=== PATIENT | female | born 1995 | race Caucasian/White ===

== ENCOUNTER 2017-11-24 12:06 | Emergency (ER) | payer MEDICAID ==
[~2017-11-24] VITALS: Ht 154.9 cm; Wt 68.9 kg
[2017-11-24 12:20] VITALS: BP 130/70
--- NOTE | 2017-11-24 12:36 | RAD ---
Exam: Right hand radiograph 11/24/2017 Indication: Fourth and fifth digit pain after being caught in a dog cage. Comparison: None available Technique: 3 views of the right hand are provided. Findings: There is no acute fracture or dislocation. No joint space narrowing. No soft tissue swelling. No osseous erosion or soft tissue gas. Bone mineralization is within normal limits. Impression: No acute fracture or dislocation.
--- NOTE | 2017-11-24 12:53 | PHYS DOC ---
Adult General Chief Complaint Chief Complaint: HAND PROBLEM HPI HPI Patient is a 22-year-old right-handed female who presents ambulatory with a complaint of right hand pain. She was trying to close her dog kennel when her hand got jammed into the wires of the dog kennel when the door was not working. She is complaining of pain, swelling, bruising, and numbness of the right hand. She states she has a previous right hand injury and had surgery and "reconstruction of all of her knuckles". Patient denies other injury. Review of Systems Review of Systems Musculoskeletal: Denies injury other than as in history of present illness Physical Exam Physical Exam Constitutional: Well developed, well nourished, no acute distress, non-toxic appearance. Alert, mentating normally, ambulatory, no acute distress. HENT: Normocephalic, atraumatic, bilateral external ears normal, nose normal. [ ] Eyes: conjunctiva normal, no discharge. [] Neck: Normal range of motion, no stridor. [] Skin: Warm, dry, no erythema, no rash. [] Extremities: Right hand: There is minimal swelling over the dorsal aspect of the third through fifth fingers. There is tenderness to palpation generalized, mostly on the dorsal aspect, no point tenderness, no deformity, no crepitance. The patient is able to actively extend all 5 digits against resistance although it is painful. No skin abnormalities or lesions. Although the patient is very protective of her right hand and barely allows sufficient exam of the hand, later while the patient is talking, she is noted to be gesturing and using the hand without difficulty. Neurologic: Alert and oriented X 3, normal motor function, no focal deficits noted. [] EKG EKG [] Radiology/Procedures Radiology/Procedures Three-view x-ray of the right hand read by the radiologist. No acute findings. Reviewed by me. No evidence of prior "reconstructive surgery" seen by me.[] Course & Med Decision Making Course & Med Decision Making Pertinent Labs and Imaging studies reviewed. (See chart for details) 22-year-old female presents with contusion to the right hand. X-rays are negative for fracture. There is no evidence on exam of any tendon or other injury or deformity other than contusion and mild swelling. Symptomatic treatment, see instructions for plan. Patient advised me that ibuprofen "causes severe vomiting" for her, although it is not an allergy, advised Tylenol. [] Dragon Disclaimer Dragon Disclaimer This electronic medical record was generated, in whole or in part, using a voice recognition dictation system. Departure Departure: Impression: Primary Impression: Contusion of right hand Disposition: HOME, SELF-CARE Condition: STABLE Patient Instructions: Contusion, [id number] Additional Instructions: Elevate and ice for swelling, as discussed. If not improving or back to normal in 3-5 days, see a hand specialist for recheck. MENDEL DURAND MD Nov 24, 2017 12:53
== END 2017-11-24 13:16 | disposition home or self-care (01) ==
LOC: ER 12:06
DX: S60.221A Contusion of right hand, initial encounter (principal); W23.0XXA Caught, crushed, jammed, or pinched between moving objects, initial encounter; Y93.89 Activity, other specified; Y99.8 Other external cause status; Y92.89 Other specified places as the place of occurrence of the external cause
CPT/HCPCS: 73130; 99284

== ENCOUNTER 2017-12-17 19:12 | Emergency (ER) | payer MEDICAID, OTHER ==
[~2017-12-17] VITALS: Ht 154.9 cm; Wt 63.5 kg
[2017-12-17 19:20] VITALS: BP 130/70
[2017-12-17] MEDS ORDERED: POLY10DR EACHEYE (20:47)
--- NOTE | 2017-12-17 20:51 | PHYS DOC ---
General Chief Complaint: EYE PROBLEMS Stated Complaint: EYE ISSUE Time Seen by MD: 20:14 Source: patient Exam Limitations: no limitations Problems: History of Present Illness Initial Comments Patient is a 22-year-old female who comes in the ED complaining of right eye redness and discharge. Patient states that last night her right eye began to feel irritated itching and burning. She awoke this morning with it matted shut with greenish yellow discharge. She's had some clear nasal discharge for the past few days and a scratchy throat but no difficulty with swallowing and she's been eating and drinking well. No fever chills sweats or body aches no foreign body sensation or actual eye pain she does not wear contact lenses. She has brought her son and with similar symptoms he is diagnosed with pinkeye as well. Patient's heart rate is 107 bpm on arrival, she states that she smokes cigarettes immediately prior to walking in. Timing/Duration: yesterday Severity: mild Location: eye (R) Prearrival Treatment: over the counter meds Associated Symptoms: other Past Medical History Medical History: no pertinent history Surgical History: noncontributory Social History Smoker: secondhand Alcohol: none Drugs: none Constitutional: denies chills, denies diaphoresis, denies fever, denies malaise Eyes: see HPI Ears: denies dizziness, denies pain, denies tinnitus Nose: denies clots, congestion Throat: see HPI, denies neck stiffness, denies painful swallowing, denies difficulty with fluids Respiratory: denies shortness of breath, denies wheezing Cardiovascular: denies palpitations, denies syncope Gastrointestinal: denies nausea, denies vomiting Physical Exam General Appearance: WD/WN, no apparent distress Eyes: right eye other (right conjunctivae injected with yellow discharge, the periorbital skin tissues are irritated as if she's been rubbing at her eye no actual periorbital swelling or difficulty with extraocular motion), bilateral eye normal inspection, bilateral eye PERRL, bilateral eye EOMI Nose: normal inspection Mouth/Throat: normal mouth inspection, pharynx normal Neck: non-tender, supple Cardiovascular/Respiratory: normal peripheral pulses, no respiratory distress Neurologic/Psychiatric: 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 Stop smoking seek medical assistance if necessary. Daily linen changes. Aggressive handwashing. Off work through December 19. Prescription: Polytrim Follow-up with your doctor in 10 days for recheck. Return to ED with new or changing symptoms. DOMENICA YOUNG DO Dec 17, 2017 20:51
== END 2017-12-17 21:08 | disposition home or self-care (01) ==
LOC: ER 19:12
DX: H10.9 Unspecified conjunctivitis (principal); R09.89 Other specified symptoms and signs involving the circulatory and respiratory systems; Z77.22 Contact with and (suspected) exposure to environmental tobacco smoke (acute) (chronic)
CPT/HCPCS: 87070; 87880; 99283

== ENCOUNTER 2018-03-23 18:53 | Emergency (ER) | payer OTHER ==
[~2018-03-23 18:53] MED LIST: POLY10DR EACHEYE
--- NOTE | 2018-03-23 19:23 | ED.ADGEN ---
Past History Past Medical History: No Pertinent History Past Surgical History: No Surgical History Alcohol Use: None Drug Use: Marijuana Adult General Chief Complaint Chief Complaint "... I been coughing a lot... Now it hurts to take the coughs." HPI HPI Patient is a 23 year old female who presents with above hx and cough'. Note Pt. left before placement in ED room for eval. Pt. left approximately 30 min . 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 Pt. did not inform staff before leaving. Review of Systems Review of Systems Respiratory: Hx. cough Physical Exam Physical Exam No exam left before room placement- no exam EKG EKG [] Radiology/Procedures Radiology/Procedures [] Course & Med Decision Making Course & Med Decision Making Pertinent Labs and Imaging studies reviewed. (See chart for details) [] Final Impression Final Impression 1. History of cough[] Problems: Dragon Disclaimer Dragon Disclaimer This electronic medical record was generated, in whole or in part, using a voice recognition dictation system. ROSALINA HERNANDEZ MD Mar 23, 2018 19:23
== END 2018-03-23 19:40 | disposition left against medical advice (07) ==
LOC: ER 18:53
DX: R05 Cough (principal); Z53.21 Procedure and treatment not carried out due to patient leaving prior to being seen by health care provider

== ENCOUNTER 2018-05-28 16:01 | Emergency (ER) | payer OTHER ==
[~2018-05-28] VITALS: Ht 160 cm; Wt 61.2 kg
--- NOTE | 2018-05-28 17:00 | PHYS DOC ---
Past History Past Medical History: No Pertinent History Past Surgical History: No Surgical History Alcohol Use: None Drug Use: Marijuana Adult General Chief Complaint Chief Complaint: LACERATION/AVULSION HPI HPI 23-year-old female presents with laceration of the right wrist. The patient started to trip and fell against a mirror the mirror broke and lacerated her wrist. Us was accidental. She denies any other injuries. She was able to get the bleeding to stop. She was concerned that it might need stitches so she came to the ED. She denies fever or chills. Last tetanus shot was one year ago when she was . Review of Systems Review of Systems Constitutional: Denies fever or chills [] Eyes: Denies change in visual acuity, redness, or eye pain [] HENT: Denies nasal congestion or sore throat [] Respiratory: Denies cough or shortness of breath [] Cardiovascular: No additional information not addressed in HPI [] GI: Denies abdominal pain, nausea, vomiting, bloody stools or diarrhea [] : Denies dysuria or hematuria [] Musculoskeletal: Denies back pain or joint pain [] Integument: 1 cm laceration of the right wrist, a second half centimeter laceration.[] Neurologic: Denies headache, focal weakness or sensory changes [] Endocrine: Denies polyuria or polydipsia [] All other systems were reviewed and found to be within normal limits, except as documented in this note. Physical Exam Physical Exam Constitutional: Well developed, well nourished, no acute distress, non-toxic appearance. [] HENT: Normocephalic, atraumatic, bilateral external ears normal, oropharynx moist, no oral exudates, nose normal. [] Eyes: PERRLA, EOMI, conjunctiva normal, no discharge. [] Neck: Normal range of motion, no tenderness, supple, no stridor. [] Cardiovascular:Heart rate regular rhythm, no murmur [] Lungs & Thorax: Bilateral breath sounds clear to auscultation [] Abdomen: Bowel sounds normal, soft, no tenderness, no masses, no pulsatile masses. [] Skin: One centimeter laceration of the left wrist. There is a second one half centimeter laceration in the same area. No foreign bodies visible[] Back: No tenderness, no CVA tenderness. [] Extremities: No tenderness, no cyanosis, no clubbing, ROM intact, no edema. [] Neurologic: Alert and oriented X 3, normal motor function, normal sensory function, no focal deficits noted. [] Psychologic: Affect normal, judgement normal, mood normal. [] Current Patient Data Vital Signs Vital Signs Date Time Temp Pulse Resp B/P (MAP) Pulse Ox O2 Delivery O2 Flow Rate FiO2 05/28/18 16:05 104 20 96 Room Air EKG EKG [] Radiology/Procedures Radiology/Procedures [] Course & Med Decision Making Course & Med Decision Making Pertinent Labs and Imaging studies reviewed. (See chart for details) The patient had one laceration that warranted stitches. The smaller laceration was repaired with skin glue. See laceration repair note below. There were no complications. The patient is stable for discharge. Laceration note: The area was irrigated with normal saline. The wound was anesthetized with 1% lidocaine. 1.5 mL was used. After adequate anesthesia was achieved, I placed 2 4-0 Ethilon sutures in the 1 cm laceration. For the laceration, was able to use skin glue. Bleeding was well-controlled. There were no complications. Triple antibiotic and clean dressing was applied over these wounds. [] Dragon Disclaimer Dragon Disclaimer This electronic medical record was generated, in whole or in part, using a voice recognition dictation system. Departure Departure: Referrals: PINEDA DOAN (PCP) MARK FREEMAN DO May 28, 2018 17:00
[2018-05-28 17:28] VITALS: BP 113/51
== END 2018-05-28 17:38 | disposition home or self-care (01) ==
LOC: ER 16:01
DX: S61.511A Laceration without foreign body of right wrist, initial encounter (principal); W01.110A Fall on same level from slipping, tripping and stumbling with subsequent striking against sharp glass, initial encounter; Y93.89 Activity, other specified; Y99.8 Other external cause status; Y92.89 Other specified places as the place of occurrence of the external cause
CPT/HCPCS: 12001; 99283

== ENCOUNTER 2018-06-12 20:56 | Emergency (ER) | payer OTHER ==
[~2018-06-12] VITALS: Ht 160 cm; Wt 63.4 kg
--- NOTE | 2018-06-12 21:24 | PHYS DOC ---
Past History Past Medical History: No Pertinent History Past Surgical History: No Surgical History Smoking: Cigarettes, Less than 1pk/day Alcohol Use: None Drug Use: Marijuana Adult General Chief Complaint Chief Complaint: SEXUALLY TRANSMITTED DISEASE HPI HPI 23-year-old female patient complaining of vaginal discharge for the last 4 days with marked itching genital area and concern for STD. Patient states she has history of genital herpes, trichomoniasis and chlamydia infection previously and had a new sexual partner for the last 4 months but always had protected intercourse with condom. Patient complaining of burning feeling at the end of her urination and complaining of lower abdominal discomfort feeling today. She denies nausea and vomiting, fever and chills, . Review of Systems Review of Systems Constitutional: Denies fever or chills [] Eyes: Denies change in visual acuity, redness, or eye pain [] HENT: Denies nasal congestion or sore throat [] Respiratory: Denies cough or shortness of breath [] Cardiovascular: No additional information not addressed in HPI [] GI: Reports abdominal pain, denies nausea, vomiting, bloody stools or diarrhea [ ] : Denies hematuria, reports dysuria Musculoskeletal: Denies back pain or joint pain [] Integument: Denies rash or skin lesions [] Neurologic: Denies headache, focal weakness or sensory changes [] Endocrine: Denies polyuria or polydipsia [] All other systems were reviewed and found to be within normal limits, except as documented in this note. Allergies Allergies Allergies Coded Allergies Type Severity Reaction Last Updated Verified Sulfa (Sulfonamide Antibiotics) Allergy Severe Anaphylaxis 06/12/18 Yes Physical Exam Physical Exam Constitutional: Well developed, well nourished, no acute distress, non-toxic appearance. [] HENT: Normocephalic, atraumatic Eyes: PERRLA, EOMI, conjunctiva normal, no discharge. [] Neck: Normal range of motion, no tenderness, supple, no stridor. [] Cardiovascular:Heart rate regular rhythm, no murmur [] Lungs & Thorax: Bilateral breath sounds clear to auscultation [] Abdomen: Bowel sounds normal, soft, no tenderness, no masses, no pulsatile masses. Vaginal exam in present of test pilot does show external genital lesion. Patient had mild to moderate amount of white discharge without cervical lesion or adnexal tenderness or bleeding. Skin: Warm, dry, no erythema, no rash. [] Back: No tenderness, no CVA tenderness. [] Extremities: No tenderness, no cyanosis, no clubbing, ROM intact, no edema. [] Neurologic: Alert and oriented X 3, normal motor function, normal sensory function, no focal deficits noted. [] Psychologic: Affect normal, judgement normal, mood normal. [] EKG EKG [] Radiology/Procedures Radiology/Procedures [] Course & Med Decision Making Course & Med Decision Making Pertinent Labs reviewed. (See chart for details) Dilution of patient in ER showed 23-year-old female patient with complaining of vaginal discharge and concern for STD. She hasn't had unremarkable physical exam. UA and wet prep was unremarkable. Patient treated with Rocephin and Zithromax with instruction to follow up with test results for gonorrhea/ chlamydia. She instructed to quit smoking. [] Dragon Disclaimer Dragon Disclaimer This electronic medical record was generated, in whole or in part, using a voice recognition dictation system. Departure Departure: Impression: Primary Impression: Concern about STD in female without diagnosis Additional Impressions: Tobacco abuse Tobacco abuse counseling Disposition: HOME, SELF-CARE (At 2219) Condition: STABLE Referrals: PCP,NO (PCP) Patient Instructions: Sexually Transmitted Disease Additional Instructions: Drink plenty of liquids Follow-up with your primary care physician in 3-5 days Return to ER if not getting better Scripts Naproxen (NAPROSYN) 500 Mg Tablet 1 TAB PO BID, #14 TAB Prov: ALAINA ORTEGA MD 06/12/18 Problem Qualifiers ALAINA ORTEGA MD Jun 12, 2018 21:24
[2018-06-12 21:52] LABS: BACTERIA,URINE 0 /HPF (0-FEW); BILIRUBIN,URINE NEG (NEG); CLARITY,URINE CLEAR; COLOR,URINE YELLOW; GLUCOSE,URINE NEG (NEG); NITRITE,URINE NEG (NEG); RBC,URINE OCC /HPF (0-2); SQUAMOUS EPITHELIAL CELL,UR FEW /LPF; UROBILINOGEN,URINE 0.2 mg/dL (0.2 mg/dL); WBC,URINE OCC /HPF (0-4)
[2018-06-12 21:53] LABS: U PREG PATIENT NEGATIVE (NEG)
[2018-06-12] MEDS ORDERED: cefTRIAXone IM 250 MG VIAL IM ONE (22:15)
[2018-06-12] MEDS ORDERED: AZITHROMYCIN 250 MG TABLET. PO ONE (22:15)
[2018-06-12] MEDS ORDERED: NAPR-683 PO (22:21)
[2018-06-12 22:33] VITALS: BP 113/77
[2018-06-14 16:10] LABS: CHLAMYDIA PROBE Negative (Negative)
== END 2018-06-12 22:38 | disposition home or self-care (01) ==
LOC: ER 20:56
DX: Z20.2 Contact with and (suspected) exposure to infections with a predominantly sexual mode of transmission (principal); F17.210 Nicotine dependence, cigarettes, uncomplicated; Z88.2 Allergy status to sulfonamides
CPT/HCPCS: 36415; 81001; 81025; 87491; 87591; 96372; 99284; J0456; J0696; Q0111

== ENCOUNTER 2018-06-22 13:13 | Emergency (ER) | payer OTHER ==
[~2018-06-22 13:13] MED LIST changes: +NAPR-683 PO
[2018-06-22] MEDS ORDERED: IBUPROFEN 600 MG TABLET. PO ONE (13:30)
--- NOTE | 2018-06-22 13:32 | ED.ADGEN ---
Past History Past Medical History: No Pertinent History, Other Past Surgical History: No Surgical History, Tonsillectomy, Other Smoking: Cigarettes, Less than 1pk/day Alcohol Use: Rarely Drug Use: None Adult General Chief Complaint Chief Complaint Chest pain, chest wall pain HPI HPI Patient noted onset of mild chest pain 10 days ago, no trauma. Pain has been worse with movement in her anterior chest wall. This morning her pain got worse when she was putting on a shirt. She felt a pop and the pain radiates to her right anterior chest wall and towards her neck. Pain is worse with breathing and palpation. She denies any cough or shortness of breath. She' s had no fevers or palpitations. Patient denies control use, leg swelling or recent surgeries. No prior DVT or PE. Review of Systems Review of Systems Constitutional: Denies fever or chills Eyes: Denies change in visual acuity, redness, or eye pain HENT: Denies nasal congestion or sore throat Respiratory: Denies cough or shortness of breath. With anterior chest wall tenderness Cardiovascular: with chest wall pain, no palpitations GI: Denies abdominal pain, nausea, vomiting, bloody stools or diarrhea : Denies dysuria or hematuria Musculoskeletal: Denies back pain or joint pain Integument: Denies rash or skin lesions Neurologic: Denies headache, focal weakness or sensory changes Endocrine: Denies polyuria or polydipsia All other systems were reviewed and found to be within normal limits, except as documented in this note. Current Medications Current Medications Current Medications Medications (Trade) Dose Ordered Sig/Margarita Start Time Stop Time Status Last Admin Dose Admin Ibuprofen (Motrin) 600 mg 1X ONCE 06/22/18 13:30 06/22/18 14:16 DC 06/22/18 13:39 600 MG Allergies Allergies Allergies Coded Allergies Type Severity Reaction Last Updated Verified Sulfa (Sulfonamide Antibiotics) Allergy Severe Anaphylaxis 06/12/18 Yes Physical Exam Physical Exam Constitutional: Well developed, well nourished, no acute distress, non-toxic appearance. HENT: Normocephalic, atraumatic, bilateral external ears normal, oropharynx moist, no oral exudates, nose normal. Eyes: PERRLA, EOMI, conjunctiva normal, no discharge. Neck: Normal range of motion, no tenderness, supple, no stridor. Cardiovascular:Heart rate regular rhythm, no murmur Lungs & Thorax: Bilateral breath sounds clear to auscultation. with anterior chest wall tenderness Abdomen: Bowel sounds normal, soft, no tenderness, no masses, no pulsatile masses. Skin: Warm, dry, no erythema, no rash. Back: No tenderness, no CVA tenderness. Extremities: No tenderness, no cyanosis, no clubbing, ROM intact, no edema. Neurologic: Alert and oriented X 3, normal motor function, normal sensory function, no focal deficits noted. Psychologic: Affect normal, judgement normal, mood normal. Current Patient Data Vital Signs Vital Signs Date Time Temp Pulse Resp B/P (MAP) Pulse Ox O2 Delivery O2 Flow Rate FiO2 06/22/18 15:00 78 18 118/64 (82) 97 Room Air 06/22/18 13:16 98.4 EKG EKG 13:38 ECG NSR @ 70 with no acute changes and normal morphology Radiology/Procedures Radiology/Procedures [address] [address] IMAGING REPORT Signed PATIENT: MAC BURGOS ACCOUNT: [id number] : 1995 LOCATION: ER AGE: 23 SEX: F EXAM STATUS: PRE ER ORD. PHYSICIAN: CHRISTEN POWELL MD REASON: chest pain PROCEDURE: CHEST PA & LATERAL CHEST PA LATERAL Technique: PA and lateral views of the chest were obtained. Clinical History: chest pain x 2 weeks, no known heart disease, lmp 05-29-2018, pt shielded Comparison: January 17, 2005. Findings: The heart and pulmonary vasculature appear within normal limits. The lungs are clear. The pleural margins are clear. Impression: No acute chest process is seen. Electronically signed by: Allie Gutierrez III, MD (06/22/2018 1:51 PM) [facility] DICTATED AND SIGNED BY: ALLIE GUTIERREZ III, MD DATE: 06/22/18 1905 CC: CHRISTEN POWELL MD; PCP,NO ~ Course & Med Decision Making Course & Med Decision Making Patient presents with chest wall pain DDx- chest wall pain, chest pain, fracture, pneumonia 16:00 Patient feels better with decreased chest wall pain after Motrin ECG was unremarkable without any evidence of acute injury pattern. Chest x-ray is unremarkable. Patient is PERC rule negative, doubt PE. Patient will follow-up with PCP for further evaluation. Final Impression Final Impression Clinical Impression Chest Wall Muscle Strain Acute Costochondritis Bina Disclaimer Bina Disclaimer This electronic medical record was generated, in whole or in part, using a voice recognition dictation system. Departure Departure: Impression: Primary Impression: Chest wall muscle strain Additional Impression: Costochondritis, acute Disposition: HOME, SELF-CARE Condition: STABLE Patient Instructions: Chest Wall Pain, [id number], Costochondritis, Easy-to- Read Additional Instructions: Follow-up with your primary doctor for further evaluation on Sunday. If you develop worse pain, shortness of breath, fevers, productive cough return to the emergency department Scripts Ibuprofen (IBUPROFEN) 400 Mg Tablet 1 TAB PO PRN Q6HRS, #20 TAB Prov: CHRISTEN POWELL MD 06/22/18 CHRISTEN POWELL MD Jun 22, 2018 13:32
--- NOTE | 2018-06-22 13:43 | EKG ---
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
--- NOTE | 2018-06-22 13:55 | RAD ---
CHEST PA LATERAL Technique: PA and lateral views of the chest were obtained. Clinical History: chest pain x 2 weeks, no known heart disease, lmp 05-29-2018, pt shielded Comparison: January 17, 2005. Findings: The heart and pulmonary vasculature appear within normal limits. The lungs are clear. The pleural margins are clear. Impression: No acute chest process is seen. Electronically signed by: Abran Gutierrez III, MD (06/22/2018 1:51 PM) [facility]
[2018-06-22 15:00] VITALS: BP 118/64
[2018-06-22] MEDS ORDERED: IBUP400T18 PO (16:10)
== END 2018-06-22 16:20 | disposition home or self-care (01) ==
LOC: ER 13:13
DX: S29.011A Strain of muscle and tendon of front wall of thorax, initial encounter (principal); M94.0 Chondrocostal junction syndrome [Tietze]; F17.210 Nicotine dependence, cigarettes, uncomplicated; Z88.2 Allergy status to sulfonamides; X58.XXXA Exposure to other specified factors, initial encounter; Y93.89 Activity, other specified; Y92.89 Other specified places as the place of occurrence of the external cause; Y99.8 Other external cause status
CPT/HCPCS: 71046; 93005; 99284

== ENCOUNTER 2019-04-02 17:15 | Emergency (ER) | payer OTHER ==
[~2019-04-02] VITALS: Ht 160 cm; Wt 79.0 kg
[~2019-04-02 17:15] MED LIST changes: +IBUP400T18 PO
[2019-04-02] MEDS ORDERED: CIPR2.5D EACHEYE (17:47)
--- NOTE | 2019-04-02 17:52 | PHYS DOC ---
Past History Past Medical History: No Pertinent History, Other Past Surgical History: No Surgical History, Tonsillectomy, Other Smoking: Cigarettes, Less than 1pk/day Alcohol Use: Rarely Drug Use: None Adult General Chief Complaint Chief Complaint: EYE PROBLEMS HPI HPI Patient is a [24-year-old female presenting with high problem irritated red itchy discharge in the morning crusting Review of Systems Review of Systems . Allergies Allergies Allergies Coded Allergies Type Severity Reaction Last Updated Verified Sulfa (Sulfonamide Antibiotics) Allergy Severe Anaphylaxis 06/12/18 Yes Physical Exam Physical Exam Constitutional: Well developed, well nourished, no acute distress, non-toxic appearance. [] HENT: Normocephalic, atraumatic, bilateral external ears normal, oropharynx moist, no oral exudates, nose normal. [] Eyes: Extraocular movements intact conjunctiva irritated bilaterally anterior chamber is quiet visual acuity as noted in nurse's notes 20/25 and 20/30 Neck: Normal range of motion, no tenderness, supple, no stridor. [] Pulmonary: Normal respiratory effort no increased work of breathing no obvious chest wall trauma Back: No tenderness, no CVA tenderness. [] Extremities: No tenderness, no cyanosis, no clubbing, ROM intact, no edema. [] Neurologic: Alert and oriented X 3, normal motor function, normal sensory function, no focal deficits noted. [] Psychologic: Affect normal, judgement normal, mood normal. [] Current Patient Data Vital Signs Vital Signs Date Time Temp Pulse Resp B/P (MAP) Pulse Ox O2 Delivery O2 Flow Rate FiO2 04/02/19 17:40 98.0 89 18 97 Room Air EKG EKG [] Radiology/Procedures Radiology/Procedures [] Course & Med Decision Making Course & Med Decision Making Pertinent Labs and Imaging studies reviewed. (See chart for details) []Conjunctivitis could be bacterial perception for Cipro drops was given Dragon Disclaimer Dragon Disclaimer This electronic medical record was generated, in whole or in part, using a voice recognition dictation system. Departure Departure: Impression: Primary Impression: Conjunctivitis Disposition: 01 HOME, SELF-CARE Condition: STABLE Patient Instructions: Conjunctivitis (Viral and Bacterial) Scripts Ciprofloxacin Hcl (CIPROFLOXACIN HCL) 2.5 Ml Drops 1 DROP EACHEYE QID for conjunctivitis for 5 Days, #5 ML Prov: HENRIETTA COATES MD 04/02/19 HENRIETTA COATES MD April 02, 2019 17:52
== END 2019-04-02 18:08 | disposition home or self-care (01) ==
LOC: ER 17:15
DX: H10.9 Unspecified conjunctivitis (principal); F17.210 Nicotine dependence, cigarettes, uncomplicated; Z88.2 Allergy status to sulfonamides
CPT/HCPCS: 99283

== ENCOUNTER 2019-05-28 12:43 | Emergency (ER) | payer OTHER ==
[~2019-05-28] VITALS: Ht 157.5 cm; Wt 74.4 kg
[~2019-05-28 12:43] MED LIST changes: +CIPR2.5D EACHEYE
[2019-05-28 13:06] LABS: BASO % 1 % (0-3); EOS # 0.1 x10^3/uL (0.0-0.7); EOS % 1 % (0-3); HEMATOCRIT 47.7 % (36.0-47.0); LYMPH # 1.5 x10^3/uL (1.0-4.8); LYMPH % 18 % (24-48); MEAN CORPUSCULAR HEMOGLOBIN 30 pg (25-35); MEAN CORPUSCULAR HGB CONC 34 g/dL (31-37); MEAN CORPUSCULAR VOLUME 90 fL (79-100); MONO # 0.4 x10^3/uL (0.0-1.1); MONO % 6 % (0-9); NEUT % 75 % (31-73); PLATELET COUNT 273 x10^3/uL (140-400); RED BLOOD COUNT 5.33 x10^6/uL (3.50-5.40); RED CELL DISTRIBUTION WIDTH 13.2 % (11.5-14.5); WHITE BLOOD COUNT 8.1 x10^3/uL (4.0-11.0)
[2019-05-28] MEDS ORDERED: ONDANSETRON PF 4 MG/2 ML VIAL. ONE (13:14)
[2019-05-28] MEDS ORDERED: MORPHINE SULFATE 2 MG/ML DISP.SYRIN. ONE (13:14)
[2019-05-28] MEDS ORDERED: MORPHINE SULFATE 4 MG/ML DISP.SYRIN. IV ONE ×2 (13:15→14:30)
[2019-05-28] MEDS ORDERED: ONDANSETRON PF 4 MG/2 ML VIAL. IV ONE (13:15)
[2019-05-28 13:16] LABS: ALBUMIN 4.4 g/dL (3.4-5.0); ALBUMIN/GLOBULIN RATIO 1.4 (1.0-1.7); CALCIUM 9.6 mg/dL (8.5-10.1); CREATININE 0.8 mg/dL (0.6-1.0); GFR 88.9; POTASSIUM 3.6 mmol/L (3.5-5.1); TOTAL BILIRUBIN 0.8 mg/dL (0.2-1.0); TOTAL PROTEIN 7.5 g/dL (6.4-8.2)
--- NOTE | 2019-05-28 13:16 | PHYS DOC ---
Past History Past Medical History: Ovarian Cyst Past Surgical History: Other Smoking: Cigarettes, Less than 1pk/day Additional Smoking Information: 1 PPD Alcohol Use: None Drug Use: None Adult General Chief Complaint Chief Complaint: ABDOMINAL PAIN HPI HPI 24-year-old female presents with sudden onset right lower quadrant abdominal pain. The patient was feeling fine yesterday. After she got up and was getting ready today, she had sudden right lower quadrant abdominal pain. She thought it might be related to her menses which just started. She took a Midol with no effect. The pain intensified significantly. He now rates the pain 10 out of 10 and is very tearful. She denies any trauma. She denies fever or chills. She's never had abdominal surgery. Review of Systems Review of Systems Constitutional: Denies fever or chills [] Eyes: Denies change in visual acuity, redness, or eye pain [] HENT: Denies nasal congestion or sore throat [] Respiratory: Denies cough or shortness of breath [] Cardiovascular: No additional information not addressed in HPI [] GI: Denies abdominal pain, nausea, vomiting, bloody stools or diarrhea [] : Denies dysuria or hematuria [] Musculoskeletal: Denies back pain or joint pain [] Integument: Denies rash or skin lesions [] Neurologic: Denies headache, focal weakness or sensory changes [] Endocrine: Denies polyuria or polydipsia [] All other systems were reviewed and found to be within normal limits, except as documented in this note. Current Medications Current Medications Current Medications Medications (Trade) Dose Ordered Sig/Margarita Start Time Stop Time Status Last Admin Dose Admin Morphine Sulfate (Morphine 2mg Syringe) 2 mg STK-MED ONCE 05/28/19 13:14 05/28/19 13:15 DC Ondansetron HCl (Zofran) 4 mg STK-MED ONCE 05/28/19 13:14 05/28/19 13:15 DC Allergies Allergies Allergies Coded Allergies Type Severity Reaction Last Updated Verified Sulfa (Sulfonamide Antibiotics) Allergy Severe Anaphylaxis 06/12/18 Yes Physical Exam Physical Exam Constitutional: Well developed, well nourished, no acute distress, non-toxic appearance. [] HENT: Normocephalic, atraumatic, bilateral external ears normal, oropharynx moist, no oral exudates, nose normal. [] Eyes: PERRLA, EOMI, conjunctiva normal, no discharge. [] Neck: Normal range of motion, no tenderness, supple, no stridor. [] Cardiovascular:Heart rate regular rhythm, no murmur [] Lungs & Thorax: Bilateral breath sounds clear to auscultation [] Abdomen: Bowel sounds normal, soft, no tenderness, no masses, no pulsatile masses. [] Skin: Warm, dry, no erythema, no rash. [] Back: No tenderness, no CVA tenderness. [] Extremities: No tenderness, no cyanosis, no clubbing, ROM intact, no edema. [] Neurologic: Alert and oriented X 3, normal motor function, normal sensory function, no focal deficits noted. [] Psychologic: Affect normal, judgement normal, mood normal. [] Current Patient Data Vital Signs Vital Signs Date Time Temp Pulse Resp B/P (MAP) Pulse Ox O2 Delivery O2 Flow Rate FiO2 05/28/19 12:53 98.4 99 24 96 Room Air Lab Results Laboratory Tests Test 05/28/19 12:52 05/28/19 13:12 White Blood Count 8.1 x10^3/uL (4.0-11.0) Red Blood Count 5.33 x10^6/uL (3.50-5.40) Hemoglobin 16.0 g/dL (12.0-15.5) H Hematocrit 47.7 % (36.0-47.0) H Mean Corpuscular Volume 90 fL (79-100) Mean Corpuscular Hemoglobin 30 pg (25-35) Mean Corpuscular Hemoglobin Concent 34 g/dL (31-37) Red Cell Distribution Width 13.2 % (11.5-14.5) Platelet Count 273 x10^3/uL (140-400) Neutrophils (%) (Auto) 75 % (31-73) H Lymphocytes (%) (Auto) 18 % (24-48) L Monocytes (%) (Auto) 6 % (0-9) Eosinophils (%) (Auto) 1 % (0-3) Basophils (%) (Auto) 1 % (0-3) Neutrophils # (Auto) 6.0 x10^3uL (1.8-7.7) Lymphocytes # (Auto) 1.5 x10^3/uL (1.0-4.8) Monocytes # (Auto) 0.4 x10^3/uL (0.0-1.1) Eosinophils # (Auto) 0.1 x10^3/uL (0.0-0.7) Basophils # (Auto) 0.0 x10^3/uL (0.0-0.2) POC Urine HCG, Qualitative hcg negative (Negative) EKG EKG [] Radiology/Procedures Radiology/Procedures [] Impressions: Examination: US PELVIS History: Sudden onset right lower quadrant pain Comparison/Correlation: None Findings: Transvaginal pelvic ultrasound exam was performed. Uterus measures 8.2 cm x 4.7 cm x 3.4 cm. Endometrial thickness is 0.3 cm. Myometrium is normal. There is no pelvic free fluid. Right ovary is enlarged measuring 4.5 cm x 4.4 cm x 4.3 cm. No flow identified on color Doppler imaging. Left ovary measures 2.8 cm x 2.1 cm x 1.7 cm. Flow is evident on spectral Doppler imaging. Impression: Enlarged right ovary with no flow detected. Findings of concern for right ovarian torsion. Dr. Freeman informed on 05/28/2019 at 1413. Electronically signed by: Mauricio Rowland MD (05/28/2019 2:15 PM) [facility] DICTATED AND SIGNED BY: MAURICIO ROWLAND MD DATE: 05/28/19 1412 CC: MARK FREEMAN DO; PCP,PINEDA ~ Course & Med Decision Making Course & Med Decision Making Pertinent Labs and Imaging studies reviewed. (See chart for details) Patient's labs are unremarkable. Her urinalysis unremarkable. Her ultrasound does show enlarged right ovary with no flow. This is highly concerning for ovarian torsion. I discussed this with Dr. Velazquez, COOKIE BREAKER and he has requested the patient be transferred to [facility] for emergent surgery. I discussed this with the patient and she is in agreement. She will go by ambulance. [] Dragon Disclaimer Dragon Disclaimer This electronic medical record was generated, in whole or in part, using a voice recognition dictation system. Departure Departure: Impression: Primary Impression: Torsion of right ovary and ovarian pedicle Disposition: 02 XFER SHT-TRM HOSP Condition: GUARDED Referrals: PCP,NO (PCP) MARK FREEMAN DO May 28, 2019 13:16
[2019-05-28 13:41] LABS: BACTERIA,URINE 0 /HPF (0-FEW); BILIRUBIN,URINE NEG (NEG); CLARITY,URINE HAZY; COLOR,URINE BROWN; GLUCOSE,URINE NEG (NEG); NITRITE,URINE NEG (NEG); RBC,URINE 0 /HPF (0-2); SQUAMOUS EPITHELIAL CELL,UR FEW /LPF; UROBILINOGEN,URINE 1 mg/dL (0.2 mg/dL); WBC,URINE 0 /HPF (0-4)
[2019-05-28] MEDS ORDERED: IV NORMAL SALINE 1,000ML 1,000 ML IV ONE (13:45)
--- NOTE | 2019-05-28 14:18 | RAD ---
Examination: US PELVIS History: Sudden onset right lower quadrant pain Comparison/Correlation: None Findings: Transvaginal pelvic ultrasound exam was performed. Uterus measures 8.2 cm x 4.7 cm x 3.4 cm. Endometrial thickness is 0.3 cm. Myometrium is normal. There is no pelvic free fluid. Right ovary is enlarged measuring 4.5 cm x 4.4 cm x 4.3 cm. No flow identified on color Doppler imaging. Left ovary measures 2.8 cm x 2.1 cm x 1.7 cm. Flow is evident on spectral Doppler imaging. Impression: Enlarged right ovary with no flow detected. Findings of concern for right ovarian torsion. Dr. Morales informed on 05/28/2019 at 1413. Electronically signed by: Mauricio Felton MD (05/28/2019 2:15 PM) [facility]
[2019-05-28 15:01] VITALS: BP 119/77
== END 2019-05-28 15:05 | disposition short-term general hospital (02) ==
LOC: ER 12:43
DX: N83.511 Torsion of right ovary and ovarian pedicle (principal); F17.210 Nicotine dependence, cigarettes, uncomplicated; Z88.2 Allergy status to sulfonamides
CPT/HCPCS: 36415; 76856; 80053; 81001; 81025; 85025; 96374; 96375; 96376; 99285; J2270; J2405; 96361; J7030

== ENCOUNTER 2020-01-24 15:36 | Emergency (ER) | payer OTHER ==
[~2020-01-24] VITALS: Ht 157.5 cm; Wt 65.9 kg
[2020-01-24 15:36] VITALS: BP 109/77
--- NOTE | 2020-01-24 16:14 | PHYS DOC ---
Past History Past Medical History: Ovarian Cyst Past Surgical History: Other Smoking: Cigarettes, Less than 1pk/day Alcohol Use: None Drug Use: None Adult General Chief Complaint Chief Complaint: VAGINAL PROBLEM HPI HPI Patient is a 24-year-old female who presents presents to the ED vaginal pain and discharge. She stated that the vaginal pain and discharge have been ongoing for approximately 3 days. Her discharge was present yesterday. She described it as a "frothy, stringy, neon green colored discharge" that she states is not present today. She also states that she does have tenderness that she describes as a constant burning in her vaginal area. She states that worse with wiping after urinating. She does report change in urination with decreased amount of urination when she has the urge to urinate. She denies fevers and chills. She rates it as a 6 out of 10. She does have recent history of unprotected sexual intercourse with a new partner. Review of Systems Review of Systems Constitutional: Denies fever or chills GI: Reports abdominal pain and constipation, denies nausea or vomiting : Denies dysuria or hematuria, reports vaginal discharge and vaginal pain Complete systems were reviewed and found to be within normal limits, except as documented in this note. Current Medications Current Medications Current Medications Medications (Trade) Dose Ordered Sig/Margarita Start Time Stop Time Status Last Admin Dose Admin Azithromycin (Zithromax) 1,000 mg 1X ONCE 01/24/20 16:15 01/24/20 16:16 UNV Ceftriaxone Sodium (Rocephin Im) 250 mg 1X ONCE 01/24/20 16:15 01/24/20 16:16 UNV Allergies Allergies Allergies Coded Allergies Type Severity Reaction Last Updated Verified Sulfa (Sulfonamide Antibiotics) Allergy Severe Anaphylaxis 06/12/18 Yes Physical Exam Physical Exam Constitutional: Well developed, well nourished, no acute distress, non-toxic appearance HENT: Normocephalic, atraumatic, oropharynx moist Eyes: Conjunctiva normal, no discharge Neck: Normal range of motion, no tenderness, supple Cardiovascular: Heart rate normal, regular rhythm Lungs & Thorax: Bilateral breath sounds clear to auscultation, no wheezing Abdomen: Soft, no significant tenderness, no guarding/rebound tenderness/distention 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 (See chart for details) Patient is a 24-year-old female who presents to the ED with a 3 day history of vaginal pain or discharge. She describes the discharge as stated "frothy, stringy, neon green discharge". She does have vaginal pain that she described as a burning pain that is worsened with wiping after urination. She has not taken anything for the pain currently. She does note a change in urinary habits inclu ding a decreased amount of urine produced with each urination. She has had recent unprotected sexual intercourse with a partner. In the ED the patient was worked up for infectious cause of vaginal pain and discharge which includes gonorrhea versus chlamydia versus Trichomonas versus bacterial vaginosis versus fungal vaginitis. A pelvic exam was performed and a UA was collected. The wet now is performed and showed white blood cells and squamous cells without the presence of clue cells, Trichomonas, and yeast. Gonorrhea and chlamydia cultures were collected and sent. Empiric antibiotics were provided. Patient stable for discharge with outpatient follow-up with PCP. Discharge paperwork was written and attempt was made to discuss results with patient. It was found patient has subsequently eloped prior to receiving results and discharge paperwork. Dragon Disclaimer Dragon Disclaimer This electronic medical record was generated, in whole or in part, using a voice recognition dictation system. Departure Departure: Impression: Primary Impression: Concern about STD in female without diagnosis Additional Impression: Vaginal discharge Disposition: HOME, SELF-CARE Condition: STABLE Referrals: PCP,NO (PCP) Patient Instructions: Sexually Transmitted Disease, [id number] Problem Qualifiers PABLO LAM DO Jan 24, 2020 16:14
[2020-01-24] MEDS ORDERED: AZITHROMYCIN 250 MG TABLET. PO ONE (16:15)
[2020-01-24] MEDS ORDERED: cefTRIAXone IM 250 MG VIAL IM ONE (16:15)
[2020-01-24 17:34] LABS: BACTERIA,URINE 0 /HPF (0-FEW); BILIRUBIN,URINE NEG (NEG); CLARITY,URINE CLEAR; COLOR,URINE STRAW; GLUCOSE,URINE NEG (NEG); NITRITE,URINE NEG (NEG); SQUAMOUS EPITHELIAL CELL,UR OCC /LPF; UROBILINOGEN,URINE 0.2 mg/dL (0.2 mg/dL)
[2020-01-26 20:06] LABS: CHLAMYDIA PROBE Negative (Negative)
== END 2020-01-24 17:50 | disposition home or self-care (01) ==
LOC: ER 15:36
DX: Z20.2 Contact with and (suspected) exposure to infections with a predominantly sexual mode of transmission (principal); N89.8 Other specified noninflammatory disorders of vagina; F17.210 Nicotine dependence, cigarettes, uncomplicated; Z88.2 Allergy status to sulfonamides
CPT/HCPCS: 36415; 81001; 81025; 87086; 87491; 87591; 96372; 99284; J0456; J0696; Q0111; 99283